=== PATIENT | male | born 1965 | race Caucasian/White ===

== ENCOUNTER 2018-09-27 15:39 | Emergency (ER) | payer MEDICAID ==
[~2018-09-27] VITALS: Ht 157.5 cm; Wt 63.5 kg
--- NOTE | 2018-09-27 15:40 | NUR ---
PT BRITTANY BLS TO ER BED 07
[2018-09-27 15:53] VITALS: BP 129/78
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
--- NOTE | 2018-09-27 18:31 | NUR ---
TRINIDAD FIORE AT BEDSIDE.
--- NOTE | 2018-09-27 18:38 | NUR ---
PATIENT TAKEN TO XRAY
[2018-09-27] MEDS ORDERED: ACETAMINOPHEN EXTRA STRENGTH 500 MG TAB PO ONE (19:35)
[2018-09-27 20:15] VITALS: BP 122/74
== END 2018-09-27 20:15 | disposition home or self-care (01) ==
LOC: MED 15:39
DX: R07.89 Other chest pain (principal)
CPT/HCPCS: 71046; 99283